=== PATIENT | female | born 1945 | race Caucasian/White ===

== ENCOUNTER → 2017-02-18 | Outpatient (CLI) | payer OTHER, MEDICARE | LOC: FIMAGING 10:00 | DX: Z12.31 Encounter for screening mammogram for malignant neoplasm of breast (principal) | CPT/HCPCS: G0202 ==

== ENCOUNTER → 2017-03-19 | Outpatient (CLI) | payer OTHER, MEDICARE | LOC: BRMIMAGING 08:36 | DX: Z13.820 Encounter for screening for osteoporosis (principal); M85.80 Other specified disorders of bone density and structure, unspecified site; Z82.62 Family history of osteoporosis ==

== ENCOUNTER → 2018-03-12 | Outpatient (CLI) | payer OTHER, MEDICARE | LOC: FIMAGING 10:27 | DX: Z12.31 Encounter for screening mammogram for malignant neoplasm of breast (principal) ==

== ENCOUNTER → 2019-03-17 | Outpatient (CLI) | payer OTHER, MEDICARE | LOC: FIMAGING 09:03 ==